=== PATIENT | female | born 1945 | race Caucasian/White ===

== ENCOUNTER 2019-06-03 09:43 | Outpatient (REF) | payer OTHER, SELFPAY ==
[2019-06-03 18:38] LABS: ALT 21 U/L (14-59); AST 18 U/L (15-37); Anion Gap 8.3 mmol/L (3-11); BUN 14 mg/dL (7-18); CO2 27.7 mmol/L (21.0-32.0); CREATININE 1.04 mg/dL (0.55-1.02); Calcium 8.8 mg/dL (8.5-10.1); Calculated LDL 104 mg/dL; Chloride 105 mmol/L (98-107); Cholesterol 215 mg/dL (50-200); Estimated GFR 51.94 (mL/min/1.73m2); Glucose 99 mg/dL (70-100); HDL Cholesterol 95 mg/dL (40-60); Potassium 4.5 mmol/L (3.5-5.1); Sodium 141 mmol/L (136-145); Triglyceride 83 mg/dL (30-150)
[2019-06-03 18:43] LABS: Hemoglobin A1C 5.7 % (4.5-6.2)
== END 2019-06-03 10:03 ==
LOC: NCHCN 09:43
PROVIDERS: PCP Physician Assistant Medical; Visit Provider Nurse Practitioner Family
DX: I10 Essential (primary) hypertension (principal); R73.03 Prediabetes
CPT/HCPCS: 80048; 80061; 83036; 84450; 84460

== ENCOUNTER 2020-06-28 13:28 | Outpatient (REF) | payer OTHER, SELFPAY ==
[2020-06-28 21:11] LABS: BUN 12 mg/dL (7-18); CREATININE 0.91 mg/dL (0.55-1.02); Chloride 106 mmol/L (98-107); Glucose 89 mg/dL (74-106); Potassium 4.2 mmol/L (3.5-5.1); Sodium 140 mmol/L (136-145)
== END 2020-06-28 13:48 ==
LOC: NCHCN 13:28
PROVIDERS: PCP Nurse Practitioner Family; Visit Provider Nurse Practitioner Family
DX: I10 Essential (primary) hypertension (principal)
CPT/HCPCS: 80048

== ENCOUNTER 2020-12-27 16:26 | Outpatient (REF) | payer OTHER, SELFPAY ==
[2020-12-27 16:19] LABS: Hemoglobin A1C 5.6 % (<5.7)
[2020-12-27 16:25] LABS: ALT 25 U/L (14-59); AST 16 U/L (15-37); Albumin 3.7 g/dL (3.4-5.0); Alkaline Phosphatase 150 U/L (46-116); Anion Gap 9.9 mmol/L (3-11); BUN 13 mg/dL (7-18); Bilirubin, Total 0.5 mg/dL (0.2-1.0); CO2 26.1 mmol/L (21.0-32.0); CREATININE 0.9 mg/dL (0.55-1.02); Calcium 8.9 mg/dL (8.5-10.1); Calculated LDL 102 mg/dL (<100); Chloride 106 mmol/L (98-107); Cholesterol 208 mg/dL (<200); Glucose 107 mg/dL (74-106); HDL Cholesterol 94 mg/dL (40-60); Potassium 4.4 mmol/L (3.5-5.1); Sodium 142 mmol/L (136-145); Total Protein 6.9 g/dL (6.4-8.2); Triglyceride 63 mg/dL (<150)
== END 2020-12-27 16:27 | disposition home or self-care (01) ==
LOC: NCHCN 16:26
PROVIDERS: PCP Nurse Practitioner Family; Visit Provider Nurse Practitioner Family
DX: E78.5 Hyperlipidemia, unspecified (principal); I10 Essential (primary) hypertension; R73.03 Prediabetes
CPT/HCPCS: 80053; 80061; 83036

== ENCOUNTER → 2022-03-20 02:15 | Outpatient (CLI) | payer MEDICARE, SELFPAY ==
--- NOTE | 2022-03-20 10:30 | DI.US_ITS ---
APPROVED REPORT EXAM: Comprehensive 2D, Doppler, and color-flow Echocardiogram Patient Location: Out-Patient Wallpaper Remover Steam: Day Mondragon RDCS (AE) Indications: Atrial Fibrillation, HTN, Prediabetic Other Information Study Quality: Good Conclusion Normal left ventricular wall thickness and chamber size. Estimated ejection fraction 55 to 60%. Wal l motion is normal Normal right ventricular size and systolic function The left atrium is borderline dilated. Right atrium is normal in size The aortic valve is trileaflet and sclerotic without stenosis or regurgitation Mild mitral annular calcification. Trace mitral regurgitation Normal tricuspid valve with trace regurgitation. Estimated right ventricular systolic pressure is 14 mmHg Wall motion Left Ventricle The left ventricle is normal size. The left ventricular systolic function is normal. The left ventric ular ejection fraction is within the normal range. There is normal left ventricular wall thickness. T here is normal LV segmental wall motion. There is no ventricular septal defect visualized. LVEF is 57 %. Right Ventricle The right ventricle is normal size. The right ventricular systolic function is normal. The RVSP is 13 .8mmHg. Atria Left atrium is borderline dilated. The right atrium size is normal. The interatrial septum is intact with no evidence for an atrial septal defect. Aortic Valve The Aortic valve is sclerotic. There is no aortic valvular stenosis. No aortic regurgitation is prese nt. Mitral Valve Mild mitral annular calcification. No evidence of mitral valve stenosis. Trace to mild mitral regurgi tation. Tricuspid Valve The tricuspid valve is normal in structure. There is no tricuspid valve stenosis. Trace tricuspid reg urgitation. Pulmonic Valve The pulmonary valve is normal in structure. There is no pulmonic valvular stenosis. There is no pulmo sophia valvular regurgitation. Great Vessels The aortic root is normal in size. The ascending aorta is normal in size. Aortic arch is not well vis ualized. IVC is normal in size and collapses >50% with inspiration. Pericardium There is no pericardial effusion. 2D Dimensions IVSD d PLAX 0.95 cm F: 0.6-1.0 LV Vol A2C d MOD 60.5 mL LVPW d PLAX 0.96 cm F: 0.6 - 1.0 LV Vol A4C d MOD 65.9 mL LVID d PLAX 4.18 cm F: 3.8 - 5.2 LA vol/ BSA A2C s A-L 38.3 mL/m2 LVDs 2.95 cm F: 2.2 - 3.5 LA vol/ BSA A4C s A-L 39.4 mL/m2 Ao Root d 2.88 cm F: 2.7 - 3.3 LA Vol/ BSA Biplane s A-L 39.4 mL/m2 RA Area A4C 11.99 cm2 LA Area A4C s MOD 21.72 cm2 RA Vol/ BSA A4C s A-L 16.0 mL/m2 LA Area A2C s MOD 21.08 cm2 Ao Asc Diam d 3.04 cm F: 2.3 - 3.1 LV EF A4C MOD 57.4 % LV EF Teichholz 56.3 % LV EF A2C MOD 57.5 % LVEF (Chavarria's) 57.98 % F: 54 - 74 LV EF Biplane MOD 58.0 % LV Volume 51.56 mL F: 46 - 106 SV 37.56 mL LV Volume Index 30.50 mL/m2 F: 29 - 61 SV Index 22.23 mL/m2 LV Vol Biplane MOD 64.8 mL FS 29.05 % M-Mode TAPSE 0.90 cm (M/F) >1.7 LV Diastology MV E' medial 0.113 (>0.07 m/s) MV E Vmax 1.24 (0.4-1.3 m/s) LV E/e MED 10.90 (<14) MV E' lateral 0.077 (>0.1 m/s) LV E/e LAT 16.00 (<14) MV E/E' medial 10.92 MV E/E' lateral 16.03 Aortic Valve LVOT Area 2.96 cm2 AoV Area Vmax 2.39 cm2 LVOT Vmax 1.27 m/s AoV Area/ BSA (Vmax) 1.41 cm2/m2 LVOT Mean Scott. 0.94 m/s PETE Mean Scott. 2.32 cm2 LVOT Peak Grad 6.5 mmHg PETE Mean Scott. Index 1.37 cm2/m2 LVOT Mean Grad 4.0 mmHg LVOT VTI 0.250 m LVOT Diam s 1.90 cm AoV Vmax 1.58 m/s Velocity Ratio 0.80 AoV Mean Scott. 1.21 m/s AoV Peak Grad 9.9 mmHg LVOT SV 74.13 mL AoV Mean Grad 6.4 mmHg AoV VTI 0.315 m AoV Area VTI 2.35 cm2 AoV Area/ BSA (VTI) 1.39 cm/m2 Mitral Valve MV VTI 0.229 m MR Vmax 5.28 m/s MV Area VTI 3.23 (4.0-6.0 cm2) MR VTI 1.700 m MR Peak Grad 111.5 mmHg MR Mean Grad 84.9 mmHg Pulmonary Valve PV Vmax 0.74 (0.5-1.5 m/s) RVOT Peak Gr. 2.15 mmHg PV Peak Grad 2.2 mmHg RVOT Mean Gr. 1.05 mmHg PV Mean Grad 1.3 mmHg RVOT VTI 0.131 m PV VTI 0.118 m RVOT Vmax 0.73 m/s Tricuspid Valve TR Peak Grad 10.7 mmHg TR Vmax 1.64 m/s RA Pressure 3.00 mmHg RVSP (TR) 13.8 mmHg
== END ==
PROVIDERS: PCP Physician Assistant; Visit Provider Physician Assistant
DX: I10 Essential (primary) hypertension (principal)
CPT/HCPCS: 93306

== ENCOUNTER 2022-04-01 10:03 | Outpatient (CLI) | payer MEDICARE, SELFPAY ==
--- NOTE | 2022-04-01 10:00 | RT.EKG_ITS ---
APPROVED REPORT Exam: Resting ECG Reason for Exam: afib Patient Location: O HR:77 bpm ECG Measurements Heart Rate 77 [place] [id number] P [id number] QRSd 100 QRS 11 QT 395 T 47 QTc 448 Conclusion Atrial fibrillation...V-rate 62- 64, irreg A-activity Poor R wave progression Baseline wander in lead(s) II,III,aVF
== END 2022-04-01 10:04 | disposition home or self-care (01) ==
LOC: DI.CARD 10:04
PROVIDERS: PCP Physician Assistant; Visit Provider Internal Medicine Cardiovascular Disease
DX: I10 Essential (primary) hypertension (principal); I48.91 Unspecified atrial fibrillation; R94.31 Abnormal electrocardiogram [ECG] [EKG]
CPT/HCPCS: 93010

== ENCOUNTER → 2022-04-01 13:21 | Outpatient (BNVA) | payer MEDICARE, SELFPAY | PROVIDERS: PCP Physician Assistant; Referring Provider Nurse Practitioner Family; Visit Provider Internal Medicine Cardiovascular Disease | DX: F17.210 Nicotine dependence, cigarettes, uncomplicated (principal); Z79.01 Long term (current) use of anticoagulants; I48.91 Unspecified atrial fibrillation; I10 Essential (primary) hypertension | CPT/HCPCS: 93005; 99202; 99203 ==

== ENCOUNTER 2022-06-25 11:40 | Outpatient (REF) | payer MEDICARE, SELFPAY ==
[2022-06-25 20:37] LABS: Hemoglobin A1C 5.9 % (<5.7)
[2022-06-25 20:43] LABS: ALT 27 U/L (14-59); AST 27 U/L (15-37); Albumin 3.9 g/dL (3.4-5.0); Alkaline Phosphatase 154 U/L (46-116); BUN 12 mg/dL (7-18); Bilirubin, Total 0.6 mg/dL (0.2-1.0); CREATININE 1.1 mg/dL (0.55-1.02); Calcium 9.2 mg/dL (8.5-10.1); Chloride 105 mmol/L (98-107); Estimated GFR 52.08 (mL/min/1.73m2); Glucose 97 mg/dL (74-106); Sodium 140 mmol/L (136-145); Total Protein 7.5 g/dL (6.4-8.2)
== END 2022-06-25 11:41 | disposition home or self-care (01) ==
LOC: NCHCN 11:40
PROVIDERS: PCP Physician Assistant; Visit Provider Physician Assistant
DX: R73.03 Prediabetes (principal); I10 Essential (primary) hypertension
CPT/HCPCS: 80053; 83036

== ENCOUNTER → 2023-04-01 09:43 | Outpatient (BNVA) | payer MEDICARE, SELFPAY | PROVIDERS: PCP Physician Assistant; Referring Provider Physician Assistant; Visit Provider Internal Medicine Cardiovascular Disease | DX: Z79.01 Long term (current) use of anticoagulants (principal); I48.91 Unspecified atrial fibrillation; I10 Essential (primary) hypertension | CPT/HCPCS: 99213 ==

== ENCOUNTER 2023-04-18 06:05 | Day surgery (SDC) | payer MEDICARE, SELFPAY ==
[2023-04-18 06:15] VITALS: BP 129/75; PULSE 85; RESP 18; TEMP 36.4; O2SAT 98
--- NOTE | 2023-04-18 06:19 | W.ANESPRE ---
General Info Date of Service Date Performed: 04/18/23 Height: 5 ft 5 in Weight: 61.689 kg Body Mass Index (BMI): 22.6 Surgical Procedure: Operation Date: 04/18/23 07:40 Proposed Procedure Side Surgeon p Cataract Extraction with IOL Implant Right Nahid Mendoza MD Meds Allergies and Home Medications Allergies Allergy/AdvReac Type Severity Reaction Status Date / Time SUKUMAR Inhibitors Allergy Skin Rash Verified 04/18/23 06:25 diltiazem Allergy Skin Rash Verified 04/18/23 06:25 metoprolol Allergy Skin Rash Verified 04/18/23 06:25 Thiazides Allergy Skin Rash Verified 04/18/23 06:25 psyllium husk Allergy Intermediate Wheezing Uncoded 04/18/23 06:25 Home Medication Medication Instructions Recorded albuterol sulfate 90 mcg/actuation 2 puff inhalation Q6H PRN 01/31/22 aerosol inhaler (ProAir HFA) calcium carbonate 600 mg-vitamin 1 tab PO BID 01/31/22 D3 10 mcg (400 unit) chewable tablet (Calcium 600 with Vitamin D3) losartan 50 mg tablet 50 mg PO DAILY 01/31/22 rivaroxaban 20 mg tablet (Xarelto) 20 mg PO HS 01/31/22 triamcinolone acetonide 0.1 % 1 applic topical BID 01/31/22 topical cream cetirizine 10 mg tablet (All Day 10 mg PO DAILY PRN 04/01/23 Allergy (cetirizine)) fluticasone propionate 50 2 spray intranasal DAILY PRN 04/01/23 mcg/actuation nasal spray,suspension umeclidinium 62.5 mcg-vilanterol 1 inh inhalation DAILY 04/01/23 25 mcg/actuation powdr for inhalation (Anoro Ellipta) Current Visit Medications: Current Medications Generic Name Dose Route Start Last Admin Trade Name Freq PRN Reason Stop Dose Admin Acetaminophen 1,000 mg 04/18/23 06:00 Acetaminophen 500 Mg Tab PO 05/18/23 05:59 Q4H PRN PRN Balanced Salt Solution 500 ml 04/18/23 06:00 Balanced Salt Soln.-Plus 500 Ml Bag OP 05/18/23 05:59 DIRECTED [facility]ON[facility] Miscellaneous Medication 0 ml 04/18/23 06:00 Prednisolone 1%, Moxifloxacin 0.5%, Nepafenac 0.1% 5ml Btl OD 05/18/23 05:59 DIRECTED [facility] Miscellaneous Medication 0 ml 04/18/23 06:00 Tropicam./Phenyleph. (1/2.5%) 5 Ml Btl OD 05/18/23 05:59 DIRECTED [facility] Tetracaine HCl 0 ml 04/18/23 06:00 Tetracaine 0.5% 4 Ml Btl OD 05/18/23 05:59 DIRECTED [facility] PFSH Active Problems Active Problems: Problem Status Onset Code Nuclear age-related cataract, right eye H25.11 Afib I48.91 HLD (hyperlipidemia) E78.5 HTN (hypertension) I10 Prediabetes R73.03 COPD (chronic obstructive pulmonary disease) J44.9 Smoker F17.200 Medical History Medical History Asymptomatic microscopic hematuria Osteoporosis PND (post-nasal drip) Rash Renal calculus Shingles Tubulovillous adenoma of colon Surgical History Surgical History (Updated 04/18/23 @ 06:23 by Lizeth Fallon) History of cataract surgery Tobacco Smoking/Tobacco Use Status: Current every day Tobacco Type: cigarettes Smoking packs per day: 0.5 Smoking cigarettes per day: 10.0 Alcohol Alcohol Intake: current Alcohol intake frequency: a few times a week Substance Use Substance use type: does not use Vital Signs and Lab Results Vital Signs Most Recent Vital Signs in EMR: Temp Pulse Resp BP Pulse Ox 36.4 C L 85 18 129/75 98 04/18/23 06:15 04/18/23 06:15 04/18/23 06:15 04/18/23 06:15 04/18/23 06:15 Lab Results Blood Type / Crossmatch: No Data to Display Complete Blood Count: No Data to Display Complete Metabolic Panel: No Data to Display Liver Function Panel: No Data to Display Coagulation Panel: No Data to Display Cardiac Panel: No Data to Display Arterial Blood Gas: No Data to Display Venous Blood Gas: No Data to Display Pancreas Panel: No Data to Display Thyroid Panel: No Data to Display Infectious Disease: No Data to Display Blood Cultures: No Data to Display Toxicology Panel: No Data to Display Imaging and Studies Imaging and Studies Study information below may be from another EMR and interpreted by another provider. Please see original notes in EMR for more complete details. EKG Summary: 7/22: afib, poor r wave progression. Echocardiogram Summary: 03/29: EF 55-60%, trace MR, trace TR. Anesthesia Assessment and Plan Anesthesia History Personal History: No History of Anesthesia Complications Family History: No Family History of Anesthesia Complications Exercise Tolerance Exercise Tolerance: Metabolic Equivalents>4 Cardiac & Pulmonary Exam Cardiac Exam: Normal S1/S2 Heart Sounds Pulmonary Exam: Clear Bilateral Breath Sounds Implantable Cardiac Device Does patient have a Pacemaker or an ICD?: No Airway Exam Known Difficult Airway: No Mallampati Class: 2 Mouth Opening: Normal (> 3cm) Thyromental Distance: Greater than 3 cm Neck Range of Motion: Full ROM Neck Circumference: Normal Teeth Condition: Normal Dentition ASA Classification ASA Score: ASA 2 Emergency Case?: No NPO Status NPO Status: NPO Clears >2 hours, Solids >8 hours Anesthesia Plan Resuscitation Status: Full Code Anesthesia Technique: MAC Anesthesia Airway Planned: Natural Airway Monitors Used: Standard Monitors Preoperative Comments:: 77 yo female for cataract removal. No MKO, understands she can ask for sedation during if needed and an IV can be placed. Sig PMHx: HTN, Afib (rivaroxaban), COPD, smoker, occ EtOH,
[2023-04-18] MEDS: Tropicam./Phenyleph. (1/2.5%) 5 ML BTL OD ×3 (06:25→06:40)
[2023-04-18 06:54] VITALS: BMI 22.6
[2023-04-18] MEDS: Tetracaine 0.5% 4 ML BTL OD (07:26)
[2023-04-18] MEDS: Povidone-Iodine Ophth 30 ML BTL (07:27)
[2023-04-18] MEDS: Balanced Salt Soln.-PLUS 500 ML BAG OP (07:33)
[2023-04-18] MEDS: Duovisc Viscoelastic System EACH 1 EACH (07:33)
[2023-04-18] MEDS: Lidocaine 1% Pres-Free 5 ML VIAL (07:34)
[2023-04-18] MEDS: Phenylephrine/Lidocaine (15/10) MG/ML 1 ML VIAL (07:35)
[2023-04-18 07:57] VITALS: BP 144/94; PULSE 85; RESP 16; TEMP 36.2; O2SAT 98
--- NOTE | 2023-04-18 07:58 | W.PM.DSUDISC ---
Date of service: 04/18/23 Time of Service: 07:58 Discharge Plan Disposition Patient Disposition: Home Discharge Details Attending Provider: Nahid Mendoza Primary Care Provider: Linda Mitchell Home Meds and New Rx's Prescriptions: No Action Anoro Ellipta 62.5-25 mcg/actuation blister with device 1 inh inhalation DAILY cetirizine [All Day Allergy (cetirizine)] 10 mg tablet 10 mg PO DAILY PRN fluticasone propionate 50 mcg/actuation spray,suspension 2 spray intranasal DAILY PRN Rx Instructions: administer into each nostril albuterol sulfate [ProAir HFA] 90 mcg/actuation HFA aerosol inhaler 2 puff inhalation Q6H PRN Calcium 600 with Vitamin D3 600 mg-10 mcg (400 unit) tablet,chewable 1 tab PO BID losartan 50 mg tablet 50 mg PO DAILY triamcinolone acetonide 0.1 % cream 1 applic topical BID Xarelto 20 mg tablet 20 mg PO HS Rx Instructions: must administer with evening meal Discharge Instructions Stand Alone Forms: Post-op Topical Cataract, Selvin Escalante (DSU) Discharge Orders Discharge Orders: Discharge Order (Routine); Ordered 04/18/23 Ordered By: Nahid Mendoza DS: Diagnosis Discharge Diagnosis (1) Nuclear age-related cataract, right eye: Status: Resolved
--- NOTE | 2023-04-18 07:59 | W.PM.OP ---
Date of service: 04/18/23 Time of Service: 07:59 Operative Note Operative Note DATE OF PROCEDURE: 04/18/23 PRE-OP DIAGNOSIS: Dense nuclear cataract, right eye POST-OP DIAGNOSIS: same PROCEDURE: Cataract extraction using phacoemulsification with intraocular lens implant, right eye SURGEON: Nahid Mendoza ANESTHESIA TYPE: Local By Surgeon and MAC Refer to Anesthesia Record ESTIMATED BLOOD LOSS: 0 PATHOLOGY: none sent COMPLICATIONS: None Patient was transported to: same day Patient's condition: stable Implants: Joel [employer] Joel Tecnis Eyhance [id number] Indications: Progressive visual loss due to cataract, right eye Procedure Description: CATARACT SURGERY OPERATIVE REPORT PREOPERATIVE DIAGNOSIS: 1. Dense nuclear cataract, right eye POSTOPERATIVE DIAGNOSIS: Same OPERATION: 1. Cataract extraction using phacoemulsification with posterior chamber intraocular lens implant, right eye. IOL: IOL Ore Crushing Dust Collector/Model: Joel [employer] Joel [employer]ecnis Eyhance DIB00 IOL Power: + 23.5 diopters IOL Serial Number: [id number] Optic Diameter: 6.0mm Haptic/Overall Diameter: 13.0mm PHACO INFO: RojelioSeebright Vision System with OZil and Active Fluidics Cumulative Dispersed Energy (CDE): 32.90 seconds SURGEON: Nahid Mendoza MD, VIDHYA ANESTHESIA: Monitored Anesthesia Care (MAC), with local sub-tenon's anesthetic infiltration COMPLICATIONS: None SPECIMENS: None INDICATIONS FOR PROCEDURE: The patient is a 77-year-old lady who previously underwent myopic LASIK many years ago with monovision. She has now developed a dense nuclear cataract in the right eye and desires cataract surgery and attempt to improve and maximize her vision. She has previously undergone cataract surgery in the left eye approximately 5 years ago. See office notes for detailed information. PROCEDURE: The correct surgical eye was identified and marked as the right eye and the pupil was dilated in the preoperative area using mydriatics and cycloplegics. The dilated pupil size was 5.0 mm. The patient elected to proceed without oral sedation. The patient was brought to the operating room where cardiopulmonary monitoring was instituted and surgical time-out was performed, confirming the correct operative eye and IOL power. Topical anesthesia was administered and ophthalmic povidone-iodine 5% was instilled into the conjunctival fornices. The mag-ocular area was prepped with Betadine 10% solution and draped in the usual sterile fashion for intraocular surgery, including an aperture drape. A Tegaderm transparent film dressing was cut in half and used to cover the lashes and lid margins. Care was taken to sequester the lashes and lid margins under the Tegaderm dressing. A lid speculum was placed between the lids of the operative eye and the Rojelio LuxOR Revalia operating microscope was maneuvered into position. Reese scissors were then used to make a conjunctival buttonhole approximately 6mm posterior to the limbus in the inferonasal quadrant. Blunt dissection was carried out to expose bare sclera, and a blunt-tipped sub-tenon?s anesthesia cannula was introduced and passed posteriorly along the globe where non-preserved plain lidocaine was injected into posterior sub-Tenon?s space. A sideport knife was used to make a paracentesis port. Intraocular phenylephrine/lidocaine was injected into the anterior chamber. The anterior chamber was filled with viscoelastic. A keratome knife was used to construct a 2-plane clear corneal tunnel extending 2.0mm into clear cornea. A flap was raised on the anterior capsule and capsulorhexis forceps were used to complete a continuous curvilinear capsulorhexis of 5.0 mm. Balanced salt solution was then used to perform cortical cleaving hydrodissection and nuclear hydrodelineation until the lens could be freely rotated within the capsular bag. The lens nucleus was then disassembled and removed within the capsular bag and iris plane using phacoemulsification. The lens nucleus was quite dense. Additional Viscoat was used intermittently to protect the corneal endothelium during removal of nuclear fragments. Residual cortical material was removed using the I/A handpiece. The posterior capsule was carefully polished to remove as much residual lens epithelial cells as safely possible. The capsular bag was then inflated and the anterior chamber deepened with cohesive viscoelastic. The lens implant described above was inserted into the capsular bag using the Joel [employer] Som[employer] Simplicity pre-loaded injector. A Kuglen hook was used to dial the IOL into position. Residual viscoelastic was then removed first from posterior to the IOL, then from the anterior chamber using the I/A handpiece. The lens implant was noted to center nicely within the capsular bag. The incisions were stromally hydrated, and the anterior chamber was reformed using BSS. Then 0.5cc of moxifloxacin 1.0mg/ml were injected into the capsular bag and anterior chamber. The incisions were checked with a Weck spear and found to be secure. Several drops of ophthalmic povidone-iodine 5% were then applied to the eye followed by two drops of Imprimis combination prednisolone/moxifloxacin/nepafenac solution. The drapes were removed and a clear plastic protective eye shield was placed over the eye. The patient was then returned to Same Day Surgery in stable condition.
--- NOTE | 2023-04-18 08:09 | W.ANESPOSTOP ---
Postoperative Evaluation Date, Time and Location Date Performed: 04/18/23 Time Performed: 08:00 Patient Location: Day Surgery Unit Vital Signs Most Recent Imported Vital Signs: Most Recent Vital Signs Temp Pulse Resp BP Pulse Ox 36.2 C L 85 16 144/94 H 98 04/18/23 07:57 04/18/23 07:57 04/18/23 07:57 04/18/23 07:57 04/18/23 07:57 Pain Score Most Recent Pain Score: Most Recent Pain Score Pain Level 0 04/18/23 07:57 Assessment Mental Status: Awake (Alert & Oriented to Patient Baseline) Airway and Respiratory Function: Patent airway with normal (patient baseline) respiratory exam Cardiovascular Function: Hemodynamically Stable Hydration Status: Adequately Hydrated Nausea & Vomiting: No Nausea or Vomiting Pain: Pt. Denies Any Pain Peripheral Nerve Block: Patient did not receive a nerve block
== END 2023-04-18 08:25 | disposition home or self-care (01) ==
LOC: SUR 06:06
PROVIDERS: PCP Physician Assistant; Visit Provider Ophthalmology
PROC: (CPT 66984; principal; 2023-04-18 07:30)
DX: H25.11 Age-related nuclear cataract, right eye (principal); I10 Essential (primary) hypertension; F17.200 Nicotine dependence, unspecified, uncomplicated
CPT/HCPCS: 66984; V2632

== ENCOUNTER 2023-10-22 09:58 | Outpatient (REF) | payer MEDICARE, SELFPAY ==
[2023-10-22 20:33] LABS: ALT 23 U/L (14-59); AST 19 U/L (15-37); Albumin 3.4 g/dL (3.4-5.0); Alkaline Phosphatase 183 U/L (46-116); Anion Gap 12.8 mmol/L (3-11); BUN 10 mg/dL (7-18); Bilirubin, Total 0.6 mg/dL (0.2-1.0); CO2 25.2 mmol/L (21.0-32.0); Calcium 9.1 mg/dL (8.5-10.1); Chloride 105 mmol/L (98-107); Estimated GFR 58.02 (mL/min/1.73m2); Glucose 109 mg/dL (74-106); Potassium 3.5 mmol/L (3.5-5.1); Sodium 143 mmol/L (136-145); Total Protein 7.1 g/dL (6.4-8.2)
[2023-10-22 20:48] LABS: Vitamin D 25 Total 30.6 ng/mL (30-100)
== END 2023-10-22 09:59 | disposition home or self-care (01) ==
LOC: NCHCN 09:58
PROVIDERS: PCP Physician Assistant; Visit Provider Physician Assistant
DX: I48.91 Unspecified atrial fibrillation (principal); R73.03 Prediabetes; M81.0 Age-related osteoporosis without current pathological fracture
CPT/HCPCS: 80053; 82306; 83036

== ENCOUNTER 2024-10-27 12:16 | Outpatient (REF) | payer MEDICARE, SELFPAY ==
[2024-10-27 19:55] LABS: Abs Immature Grans 0.01 10^3/uL (0.0-0.06); Absolute Basophil Count 0.08 10^3/uL (0.0-0.2); Absolute Eosinophil Count 0.17 10^3/uL (0.0-0.7); Absolute Lymphocyte Count 1.75 10^3/uL (1.2-3.4); Absolute Monocyte Count 0.61 10^3/uL (0.1-0.8); Basophils % 1.2 %; Eosinophils % 2.6 %; HCT 46.5 % (36.0-46.0); HGB 15.5 g/dL (11.2-15.7); Immature Grans % 0.2 %; Lymphocytes % 26.4 %; MCH 31.3 pg (27.0-33.0); MCHC 33.3 % (32.0-36.0); MCV 94 fL (80-95); Monocytes % 9.2 %; Neutrophils % 60.4 %; Platelet Count 236 10^3/uL (130-400); RBC 4.95 10^6/uL (3.93-5.22); RDW 13.1 % (11.7-14.6); RDW-SD 44.8 fL; WBC 6.62 10^3/uL (4.4-10.8)
[2024-10-27 20:05] LABS: ALT 22 U/L (14-59); AST 23 U/L (15-37); Albumin 3.9 g/dL (3.4-5.0); Alkaline Phosphatase 161 U/L (46-116); Anion Gap 7.5 mmol/L (3-11); BUN 16 mg/dL (7-18); Bilirubin, Total 0.73 mg/dL (0.2-1.0); CO2 26.5 mmol/L (21.0-32.0); CREATININE 1.1 mg/dL (0.55-1.02); Calcium 9.4 mg/dL (8.5-10.1); Chloride 105 mmol/L (98-107); Estimated GFR 51.43 (mL/min/1.73m2); Glucose 116 mg/dL (74-106); LDL CHOLESTEROL 72 mg/dL (<100); Sodium 139 mmol/L (136-145); Total Protein 7.4 g/dL (6.4-8.2)
[2024-10-28 19:18] LABS: Hepatitis C Ab w Rflx HCV PCR Negative (Negative)
== END 2024-10-27 12:17 | disposition home or self-care (01) ==
LOC: NCHCN 12:16
PROVIDERS: PCP Physician Assistant; Visit Provider Physician Assistant
DX: I10 Essential (primary) hypertension (principal); Z11.59 Encounter for screening for other viral diseases; I48.91 Unspecified atrial fibrillation
CPT/HCPCS: 80053; 83721; 86803; 85025